=== PATIENT | male | born 1975 | race Caucasian/White ===

== ENCOUNTER 2023-10-26 19:26 | Emergency (ER) | payer OTHER ==
[2023-10-26 19:33] VITALS: BMI 45.0
[2023-10-26] MEDS ORDERED: POLYETHYLENE GLYCOL (HEALTHYLAX) 3350 17 GM PACKET ONE (19:49)
[2023-10-26] MEDS: POLYETHYLENE GLYCOL (HEALTHYLAX) 3350 17 GM PACKET PO ONE (19:52)
[2023-10-26 22:16] LABS: BASO % 0.6 % (0-2.0); EOS % 3.3 % (0-4.5); HEMATOCRIT 42.7 % (35.4-49); HEMOGLOBIN 14.5 GM/dL (11.7-16.9); LYMPH % 29.4 % (8-40); MCH 31.4 pg (25.7-33.7); MCHC 33.9 g/dl (32.0-35.9); MEAN CELL VOLUME 92.8 fl (80-96); MEAN PLT VOLUME 8.1 fl (7.5-11.1); MONO % 8.2 % (3.8-10.2); NEUT % 58.5 % (42.8-82.8); PLATELET COUNT 252 10^3/uL (134-434); RDW 13.6 % (11.9-15.9); WHITE BLOOD COUNT 6.1 K/mm3 (4.0-10.0)
[2023-10-26 22:33] LABS: POTASSIUM 4.1 mmol/L (3.5-5.1)
[2023-10-26 22:35] LABS: ALBUMIN 3.5 g/dl (3.4-5.0); BLOOD UREA NITROGEN 15.6 mg/dL (7-18); CALCIUM 8.9 mg/dL (8.5-10.1)
[2023-10-26 22:38] LABS: CREATININE 0.7 mg/dL (0.55-1.3)
[2023-10-26 22:40] LABS: BILIRUBIN,TOTAL 0.4 mg/dL (0.2-1)
[2023-10-26 22:52] LABS: PH,URINE 5.5 (5.0-8.0); URINE APPEARANCE CLEAR; URINE BILIRUBIN NEGATIVE (NEGATIVE); URINE COLOR YELLOW; URINE GLUCOSE (UA) NEGATIVE (NEGATIVE); URINE KETONE NEGATIVE (NEGATIVE); URINE LEUK ESTERASE NEGATIVE (NEGATIVE); URINE NITRITE NEGATIVE (NEGATIVE); URINE PROTEIN NEGATIVE (NEGATIVE); URINE UROBILINOGEN 0.2 mg/dL (0.2-1.0)
[2023-10-27 02:14] VITALS: BP 111/73; PULSE 71; RESP 16; TEMP 97.5
== END 2023-10-27 02:00 | disposition home or self-care (01) ==
LOC: JER 19:26
DX: K59.00 Constipation, unspecified (principal); M54.50 Low back pain, unspecified; R50.9 Fever, unspecified; R11.10 Vomiting, unspecified; A08.4 Viral intestinal infection, unspecified
CPT/HCPCS: 36415; 72131-TC; 74019-TC-FY; 80053; 81003; 85025; 99285-25